=== PATIENT | male | born 1995 | race Asian ===

== ENCOUNTER 2019-09-26 01:14 | Emergency (ER) | payer SELFPAY ==
[~2019-09-26] VITALS: Ht 177.8 cm; Wt 80.7 kg
[2019-09-26 01:15] VITALS: BP 130/74
--- NOTE | 2019-09-26 01:15 | NUR ---
ED Nurse Note: pt brought in by ambulance for ETOH. pt was vomiting. pt appears to be lethargic. VSS
--- NOTE | 2019-09-26 01:49 | Emergency Room Report ---
History of Present Illness General Chief Complaint: Alcohol Intoxication Source: Patient, EMS Present Illness HPI 24-year-old male brought in mass with alcohol intoxication. He was found in a [place] by [facility]. He was in a costume. He is been drinking heavily. He was vomiting. No trauma. He was brought in for alcohol intoxication. Here patient admits to drinking. Denies any drug use. Denies any trauma. Denies any other complaint. History is limited because of his intoxication. Allergies: Coded Allergies: No Known Allergies (Unverified , 09/26/19) Patient History Past Medical History: see triage record, old chart reviewed Past Surgical History: none Pertinent Family History: none Social History: Reports: alcohol use Immunizations: other Reviewed Nursing Documentation: PMH: Agreed; PSxH: Agreed Nursing Documentation-PMH Past Medical History: No Stated History Review of Systems Eye: Denies: eye pain, blurred vision ENT: Denies: ear pain, nose congestion, throat swelling Respiratory: Denies: cough, shortness of breath Cardiovascular: Denies: chest pain, palpitations Gastrointestinal: Denies: abdominal pain, diarrhea, nausea, vomiting Musculoskeletal: Denies: back pain, joint pain Skin: Denies: rash Neurological: Denies: headache, numbness Endocrine: Denies: increased thirst, increased urine Hematologic/Lymphatic: Denies: easy bruising All Other Systems: negative except mentioned in HPI Physical Exam Vital Signs Date Time Temp Pulse Resp B/P (MAP) Pulse Ox O2 Delivery O2 Flow Rate FiO2 09/26/19 01:10 99.0 88 18 132/74 (93) 98 Room Air 09/26/19 01:15 98 Vitals normal Sp02 EP Interpretation: reviewed, normal General Appearance: well appearing, no apparent distress, other - Intoxicated Head: normocephalic, other - Abrasion to chin, superficial Eyes: bilateral eye PERRL, bilateral eye EOMI ENT: hearing grossly normal, normal pharynx Neck: full range of motion, supple, no meningismus Respiratory: chest non-tender, lungs clear, normal breath sounds Cardiovascular #1: regular rate, rhythm, no murmur Gastrointestinal: normal bowel sounds, non tender, no mass, no organomegaly, no bruit, non-distended Musculoskeletal: back normal, normal range of motion Psychiatric: mood/affect normal Medical Decision Making Diagnostic Impression: Primary Impression: Acute alcoholic intoxication Qualified Codes: F10.920 - Alcohol use, unspecified with intoxication, uncomplicated ER Course Patient presents with alcohol intoxication. No head injury to warrant x-ray or CT scan. Will discharge home once he is more clinically sober. Last Vital Signs Date Time Temp Pulse Resp B/P (MAP) Pulse Ox O2 Delivery O2 Flow Rate FiO2 09/26/19 01:15 99.0 92 18 130/74 98 Room Air 09/26/19 01:15 98 Status: improved Disposition: HOME, SELF-CARE Condition: Stable Patient Instructions: Alcohol Intoxication, [id number] Additional Instructions: Abstain from drinking to excess. Follow-up with your doctor in 7 days. Return if worse. Asif Milian MD Sep 26, 2019 01:49
[2019-09-26 03:24] VITALS: BP 122/71
--- NOTE | 2019-09-26 03:24 | NUR ---
ED Nurse Note: pt in bed with eyes closed. appears to be sleeping. VSS
[2019-09-26 05:11] VITALS: BP 123/66
--- NOTE | 2019-09-26 05:11 | NUR ---
ED Nurse Note: Pt in bed sleeping. No acute distress is noted.
[2019-09-26 05:42] VITALS: BP 118/70
--- NOTE | 2019-09-26 05:42 | NUR ---
ER DISCHARGE NOTE: Patient is cleared to be discharged per ERMD, pt is aox4, on room air, with stable vital signs. pt was given dc instructions, pt was able to verbalize understanding, pt id band removed without complications. pt is able to ambulate with steady gait. pt took all belongings.
== END 2019-09-26 05:42 | disposition home or self-care (01) ==
LOC: EDBD 01:14 → EMR 03:30
DX: F10.920 Alcohol use, unspecified with intoxication, uncomplicated (principal)
CPT/HCPCS: 99281